=== PATIENT | male | born 1960 | race Caucasian/White ===

== ENCOUNTER 2024-05-30 12:16 | Outpatient (CLI) | payer BC | END 2024-05-30 12:17 | disposition home or self-care (01) | LOC: BICCT 12:16 | PROVIDERS: ATTEND Student in an Organized Health Care Education/Training Program | DX: I71.20 Thoracic aortic aneurysm, without rupture, unspecified (principal); I71.21 Aneurysm of the ascending aorta, without rupture | CPT/HCPCS: 71250 ==